=== PATIENT | male | born 1985 | race African-American/Black ===

== ENCOUNTER 2017-01-29 17:16 | Emergency (ER) | payer BC, MEDICAID ==
[~2017-01-29] VITALS: Ht 177.8 cm; Wt 78.0 kg
[2017-01-29] MEDS ORDERED: LIDOCAINE HCL 1%/EPI 1:200,000 30 ML VIAL MC ONE (18:45)
[2017-01-29] MEDS ORDERED: CEPHALEXIN 500MG CAPSULE PO ONE (18:45)
[2017-01-29] MEDS ORDERED: ACETAMINOPHEN 650MG/20.3ML UDC PO ONE (20:00)
[2017-01-29] MEDS ORDERED: ACETAMINOPHEN 325MG TABLET PO ONE (20:30)
[2017-01-29 20:40] VITALS: BP 123/74
== END 2017-01-29 23:15 | disposition home or self-care (01) ==
LOC: ER 23:06
DX: L03.119 Cellulitis of unspecified part of limb (principal); F17.200 Nicotine dependence, unspecified, uncomplicated; Z86.61 Personal history of infections of the central nervous system
CPT/HCPCS: 10060; 99283; 99406; X7700; Z7610; A4565

== ENCOUNTER 2017-11-01 19:36 | Emergency (ER) | payer SELFPAY ==
[~2017-11-01] VITALS: Ht 177.8 cm; Wt 77.3 kg
[2017-11-01 19:40] VITALS: BP 116/88
== END 2017-11-01 23:06 | disposition left against medical advice (07) ==
LOC: ER 21:26
DX: Z53.21 Procedure and treatment not carried out due to patient leaving prior to being seen by health care provider (principal); F32.9 Major depressive disorder, single episode, unspecified; F41.9 Anxiety disorder, unspecified; F17.200 Nicotine dependence, unspecified, uncomplicated